=== PATIENT | female | born 1965 | race Hispanic/Latino ===

== ENCOUNTER 2023-04-02 01:02 | Inpatient (IN) | payer BC ==
[~2023-04-02] VITALS: Ht 152.4 cm; Wt 104.3 kg
[~2023-04-02 01:02] MED LIST: AMLO-257 PO; ATOR10 PO; GABA-529 PO; LOSA100T59 PO; METF-444 PO
[2023-04-02 01:45] LABS: BASOPHILS % (AUTO) 0.3 % (0.0-5.0); EOSINOPHILS % (AUTO) 0.9 % (0.0-8.0); HEMATOCRIT 39.1 % (36-48); LYMPHOCYTES % (AUTO) 12.2 % (21.0-51.0); MEAN CORPUSCULAR HEMOGLOBIN 27.6 pg (27.0-33.0); MEAN CORPUSCULAR HGB CONC 33.8 g/dL (32.0-36.0); MEAN CORPUSCULAR VOLUME 81.6 fL (79-99); MONOCYTES % (AUTO) 6.9 % (3.0-13.0); NEUTROPHILS % (AUTO) 79.3 % (40.0-77.0); PLATELET COUNT (AUTO) 203 K/uL (130-400); RED BLOOD CELL COUNT(AUTO) 4.79 MIL/uL (4.00-5.50); RED CELL DISTRIBUTION WIDTH 13.2 % (11.0-15.5); WHITE BLOOD COUNT (AUTO) 14.1 K/uL (4.8-10.8)
[2023-04-02] MEDS ORDERED: KETOROLAC 15MG/ML VIAL (15MG/ML) IV ONE (02:00)
[2023-04-02 02:01] LABS: CREATININE 0.9 mg/dL (0.5-1.5); POTASSIUM 3.9 mmol/L (3.5-5.1)
[2023-04-02 02:05] LABS: TOTAL PROTEIN, SERUM 7.2 g/dL (6.0-8.3)
[2023-04-02 02:19] LABS: APPEARANCE,URINE CLEAR (CLEAR); BILIRUBIN,URINE NEGATIVE (NEGATIVE); COLOR,URINE LIGHT-YELLOW (YELLOW); GLUCOSE, URINE (UA) >=1000 mg/dL (NEGATIVE); KETONES,URINE NEGATIVE (NEGATIVE); LEUKOCYTE ESTERASE ,URINE NEGATIVE Leu/uL (NEGATIVE); NITRATE,URINE NEGATIVE (NEGATIVE); PROTEIN,URINE 10 mg/dL (NEGATIVE); UROBILINOGEN,URINE 0.2 mg/dL (0.2-1.0)
[2023-04-02 02:21] LABS: BACTERIA,URINE FEW /HPF (None Seen); MUCUS,URINE RARE LPF (None Seen); SQUAMOUS EPITHELIAL CELL,UR FEW /HPF (0-2)
[2023-04-02] MEDS ORDERED: ZOSYN 3.375GM +NS 50ML IVPB ONE (03:00)
[2023-04-02] MEDS ORDERED: ONDANSETRON 4MG INJ IVP ONE (03:30)
[2023-04-02] MEDS ORDERED: MORPHINE 2 MG SYG IVP ONE (03:30)
[2023-04-02] MEDS ORDERED: ONDANSETRON 4MG INJ IVP PRN (06:30)
[2023-04-02] MEDS: 0.9%NACL 1000ML 1,000 ML IV SCH ×2 (06:48→19:50)
[2023-04-02] MEDS: HEPARIN 5,000 UNIT VIAL SQ SCH ×2 (06:48→18:18)
[2023-04-02] MEDS: MORPHINE 2 MG SYG IVP PRN ×3 (08:47→23:29)
[2023-04-02] MEDS: ACETAMINOPHEN 325 MG TAB PO PRN ×2 (10:32→23:22)
[2023-04-02 11:50] VITALS: BP 132/60
[2023-04-02] MEDS: ZOSYN 3.375GM +NS 50ML IVPB SCH ×2 (12:58→21:05)
[2023-04-02 15:35] VITALS: BP 146/72
[2023-04-02 19:20] VITALS: BP 121/73
[2023-04-02] MEDS ORDERED: INSULIN HUMULIN R 100 UNIT/ML 3ML SQ SCH (21:00)
[2023-04-02] MEDS: LACTATED RINGERS 1000ML 1,000 ML IV SCH (21:05)
[2023-04-02] MEDS: INSULIN HUMULIN R 100 UNIT/ML 3ML SQ SCH (21:15)
[2023-04-02 23:50] VITALS: BP 148/81
[2023-04-03 04:00] VITALS: BP 134/77
[2023-04-03 05:02] LABS: BASOPHILS % (AUTO) 0.6 % (0.0-5.0); EOSINOPHILS % (AUTO) 3.1 % (0.0-8.0); LYMPHOCYTES % (AUTO) 27.2 % (21.0-51.0); MEAN CORPUSCULAR HEMOGLOBIN 27.7 pg (27.0-33.0); MEAN CORPUSCULAR HGB CONC 33.2 g/dL (32.0-36.0); MEAN CORPUSCULAR VOLUME 83.3 fL (79-99); MONOCYTES % (AUTO) 6.5 % (3.0-13.0); NEUTROPHILS % (AUTO) 62.1 % (40.0-77.0); PLATELET COUNT (AUTO) 233 K/uL (130-400); RED BLOOD CELL COUNT(AUTO) 4.08 MIL/uL (4.00-5.50); RED CELL DISTRIBUTION WIDTH 13.2 % (11.0-15.5)
[2023-04-03 05:21] LABS: ALBUMIN 2.2 g/dL (3.5-5.0); CREATININE 0.6 mg/dL (0.5-1.5); MAGNESIUM 1.4 mg/dL (1.80-2.40); TOTAL PROTEIN, SERUM 6.2 g/dL (6.0-8.3)
[2023-04-03 05:26] LABS: HEMOGLOBIN A1C 10.8 % (4.0-6.0)
[2023-04-03] MEDS: ZOSYN 3.375GM +NS 50ML IVPB SCH ×3 (05:43→21:15)
[2023-04-03] MEDS: HEPARIN 5,000 UNIT VIAL SQ SCH ×2 (06:02→18:46)
[2023-04-03] MEDS: INSULIN HUMULIN R 100 UNIT/ML 3ML SQ SCH ×4 (06:03→18:00)
[2023-04-03 07:40] VITALS: BP 149/69
[2023-04-03] MEDS: PANTOPRAZOLE 40 MG/VIAL IVP SCH (08:47)
[2023-04-03] MEDS: POTASSIUM CHLORIDE 20MEQ/100ML 100 ML IV PRN ×2 (09:26→12:27)
[2023-04-03 12:00] VITALS: BP 130/72
[2023-04-03] MEDS: LACTATED RINGERS 1000ML 1,000 ML IV SCH (13:27)
[2023-04-03] MEDS: KCL 20 MEQ ERTAB PO PRN ×4 (13:27→20:00)
[2023-04-03] MEDS ORDERED: POTASSIUM CHLORIDE 10% ELIXIR 20 MEQ/15 ML UDCUP PO PRN (13:30)
[2023-04-03] MEDS ORDERED: POTASSIUM CHLORIDE 20MEQ/100ML 100 ML IV PRN (13:30)
[2023-04-03 16:08] VITALS: BP 136/75
[2023-04-03] MEDS: MORPHINE 2 MG SYG IVP PRN (16:15)
[2023-04-03 19:27] VITALS: BP 136/77
[2023-04-03 22:58] VITALS: BP 145/73
[2023-04-04 02:49] VITALS: BP 122/70
[2023-04-04] MEDS: ZOSYN 3.375GM +NS 50ML IVPB SCH ×3 (05:04→20:59)
[2023-04-04] MEDS: INSULIN HUMULIN R 100 UNIT/ML 3ML SQ SCH ×4 (06:00→18:19)
[2023-04-04 06:34] LABS: HEMATOCRIT 36.5 % (36-48); MEAN CORPUSCULAR HEMOGLOBIN 27.7 pg (27.0-33.0); MEAN CORPUSCULAR HGB CONC 33.2 g/dL (32.0-36.0); MEAN CORPUSCULAR VOLUME 83.5 fL (79-99); RED BLOOD CELL COUNT(AUTO) 4.37 MIL/uL (4.00-5.50); RED CELL DISTRIBUTION WIDTH 13.1 % (11.0-15.5); WHITE BLOOD COUNT (AUTO) 9.1 K/uL (4.8-10.8)
[2023-04-04] MEDS: HEPARIN 5,000 UNIT VIAL SQ SCH ×2 (06:34→18:18)
[2023-04-04 06:48] LABS: CREATININE 0.6 mg/dL (0.5-1.5); MAGNESIUM 1.6 mg/dL (1.80-2.40); POTASSIUM 3.8 mmol/L (3.5-5.1)
[2023-04-04 08:03] VITALS: BP 146/76
[2023-04-04] MEDS: PANTOPRAZOLE 40 MG/VIAL IVP SCH (08:44)
[2023-04-04] MEDS: LACTATED RINGERS 1000ML 1,000 ML IV SCH (10:04)
[2023-04-04] MEDS ORDERED: DiphenhydrAMINE HCL 50 MG/ML VIAL IV ONE (11:00)
[2023-04-04] MEDS ORDERED: SOLU-MEDROL 40MG VIAL IVP ONE (11:30)
[2023-04-04 11:32] VITALS: BP 167/90
[2023-04-04] MEDS ORDERED: IOHEXOL 350 MG/ML 100ML INFUS..BTL IV ONE (12:09)
[2023-04-04 15:43] VITALS: BP 154/79
[2023-04-04 19:15] VITALS: BP 152/81
[2023-04-04] MEDS ORDERED: MAGNESIUM 2GM PREMIX 50ML 50 ML IV SCH (19:30)
[2023-04-04] MEDS: AMLODIPINE 5 MG TAB PO SCH (20:22)
[2023-04-04] MEDS: LOSARTAN 100 MG TABLET PO SCH (20:22)
[2023-04-04] MEDS: GABAPENTIN 100 MG CAPSULE PO SCH (20:23)
[2023-04-04 22:47] VITALS: BP 155/84
[2023-04-05] VITALS (20 sets, daily range): BP systolic 96–164; BP diastolic 37–86
[2023-04-05] MEDS: LACTATED RINGERS 1000ML 1,000 ML IV SCH ×3 (00:42→16:45)
[2023-04-05] MEDS: 0.9%NACL 1000ML 1,000 ML IV SCH (01:10)
[2023-04-05] MEDS: ZOSYN 3.375GM +NS 50ML IVPB SCH ×3 (05:06→21:04)
[2023-04-05] MEDS: INSULIN HUMULIN R 100 UNIT/ML 3ML SQ SCH ×3 (06:00→11:53)
[2023-04-05] MEDS: HEPARIN 5,000 UNIT VIAL SQ SCH ×2 (06:30→18:28)
[2023-04-05] MEDS: PANTOPRAZOLE 40 MG/VIAL IVP SCH (09:37)
[2023-04-05 10:02] LABS: BASOPHILS % (AUTO) 0.4 % (0.0-5.0); EOSINOPHILS % (AUTO) 0.1 % (0.0-8.0); HEMATOCRIT 35.5 % (36-48); LYMPHOCYTES % (AUTO) 23.7 % (21.0-51.0); MEAN CORPUSCULAR HEMOGLOBIN 27.6 pg (27.0-33.0); MEAN CORPUSCULAR HGB CONC 34.1 g/dL (32.0-36.0); MEAN CORPUSCULAR VOLUME 81.1 fL (79-99); MONOCYTES % (AUTO) 5.4 % (3.0-13.0); NEUTROPHILS % (AUTO) 68.9 % (40.0-77.0); PLATELET COUNT (AUTO) 311 K/uL (130-400); RED BLOOD CELL COUNT(AUTO) 4.38 MIL/uL (4.00-5.50); WHITE BLOOD COUNT (AUTO) 14.1 K/uL (4.8-10.8)
[2023-04-05 10:18] LABS: ALBUMIN 2.9 g/dL (3.5-5.0); CREATININE 0.7 mg/dL (0.5-1.5); MAGNESIUM 2.2 mg/dL (1.80-2.40); POTASSIUM 3.5 mmol/L (3.5-5.1); TOTAL PROTEIN, SERUM 7.3 g/dL (6.0-8.3)
[2023-04-05] MEDS: KCL 20 MEQ ERTAB PO PRN ×2 (10:34→12:22)
[2023-04-05] MEDS ORDERED: PROPOFOL 10 MG/ML 20ML VIAL IV ONE ×2 (13:44→13:45)
[2023-04-05] MEDS ORDERED: LIDOCAINE PF 100MG/5ML (2%) SYRINGE 5ML ONE (13:45)
[2023-04-05] MEDS: MORPHINE 2 MG SYG IVP PRN (15:50)
[2023-04-05 16:22] LABS: INR 0.99 (0.85-1.15); PROTHROMBIN TIME 10.8 SEC (9.6-11.6)
[2023-04-05 16:23] LABS: PARTIAL THROMBOPLASTIN TIME 26.9 SEC (26.3-35.5)
[2023-04-05] MEDS: AMLODIPINE 5 MG TAB PO SCH (21:04)
[2023-04-05] MEDS: GABAPENTIN 100 MG CAPSULE PO SCH (21:04)
[2023-04-05] MEDS: LOSARTAN 100 MG TABLET PO SCH (21:04)
[2023-04-06] VITALS (29 sets, daily range): BP systolic 124–175; BP diastolic 69–88
[2023-04-06] MEDS: LACTATED RINGERS 1000ML 1,000 ML IV SCH (04:53)
[2023-04-06] MEDS: ZOSYN 3.375GM +NS 50ML IVPB SCH ×3 (04:53→20:33)
[2023-04-06] MEDS: INSULIN HUMULIN R 100 UNIT/ML 3ML SQ SCH ×4 (06:00→18:42)
[2023-04-06] MEDS: HEPARIN 5,000 UNIT VIAL SQ SCH (06:30)
[2023-04-06] MEDS: PANTOPRAZOLE 40 MG/VIAL IVP SCH (08:33)
[2023-04-06] MEDS ORDERED: IOHEXOL-350 50ML VIAL IV ONE (10:13)
[2023-04-06] MEDS ORDERED: SUCCINYLCHOLINE CHLORIDE 20 MG/ML 10 ML VIAL ONE (10:41)
[2023-04-06] MEDS ORDERED: LIDOCAINE PF 100MG/5ML (2%) SYRINGE 5ML ONE (10:41)
[2023-04-06] MEDS ORDERED: DEXAMETHASONE SOD PHOSPHATE 10MG/ML 1ML VIAL ONE (10:42)
[2023-04-06] MEDS ORDERED: GLYCOPYRROLATE 1 MG/5 ML SYRINGE ONE (10:42)
[2023-04-06] MEDS ORDERED: NEOSTIGMINE 5MG/5ML SYR IV ONE (10:43)
[2023-04-06] MEDS ORDERED: FENTANYL CITRATE PF 50 MCG/1 ML 2ML VIAL ONE ×3 (10:43→12:34)
[2023-04-06] MEDS ORDERED: ONDANSETRON 4MG INJ ONE (10:43)
[2023-04-06] MEDS ORDERED: PROPOFOL 10 MG/ML 20ML VIAL IV ONE (10:43)
[2023-04-06] MEDS ORDERED: ROCURONIUM 10MG/1ML SYR 10 MG/ML ML ONE (10:43)
[2023-04-06] MEDS ORDERED: MIDAZOLAM HCL 1 MG/ML 2ML VIAL ONE (10:43)
[2023-04-06] MEDS ORDERED: BUPIVACAINE/PF 0.25% 30ML VIAL IJ ONE (10:53)
[2023-04-06] MEDS ORDERED: MEPERIDINE-PF 25 MG/ML SYG ONE ×2 (12:44→12:56)
[2023-04-06] MEDS: MORPHINE 2 MG SYG IVP PRN ×2 (14:56→20:53)
[2023-04-06] MEDS ORDERED: PIPE3.379 IV (20:06)
[2023-04-06] MEDS: GABAPENTIN 100 MG CAPSULE PO SCH (20:33)
[2023-04-06] MEDS: LOSARTAN 100 MG TABLET PO SCH (20:34)
[2023-04-06] MEDS: AMLODIPINE 5 MG TAB PO SCH (20:34)
[2023-04-06] MEDS ORDERED: 0.9%NACL 10ML VIAL IV SCH (21:00)
== END 2023-04-06 22:16 | disposition home or self-care (01) | DRG 336 ==
LOC: EDH 01:02 → EDHIP 06:03 → WSH 11:45
PROVIDERS: ADMIT Internal Medicine Infectious Disease; ATTEND Internal Medicine Infectious Disease
PROC: 0DB98ZX Excision of Duodenum, Via Natural or Artificial Opening Endoscopic, Diagnostic (ICD-10-PCS; 2023-04-05)
PROC: 0DB68ZX Excision of Stomach, Via Natural or Artificial Opening Endoscopic, Diagnostic (ICD-10-PCS; 2023-04-05)
PROC: 0DB58ZX Excision of Esophagus, Via Natural or Artificial Opening Endoscopic, Diagnostic (ICD-10-PCS; 2023-04-05)
PROC: 0DB68ZZ Excision of Stomach, Via Natural or Artificial Opening Endoscopic (ICD-10-PCS; 2023-04-05)
PROC: 0DNW4ZZ Release Peritoneum, Percutaneous Endoscopic Approach (ICD-10-PCS; 2023-04-06)
PROC: BF131ZZ Fluoroscopy of Gallbladder and Bile Ducts using Low Osmolar Contrast (ICD-10-PCS; 2023-04-06)
PROC: 0FT44ZZ Resection of Gallbladder, Percutaneous Endoscopic Approach (ICD-10-PCS; principal; 2023-04-06 10:59)
DX: K29.70 Gastritis, unspecified, without bleeding (principal); K65.4 Sclerosing mesenteritis; K81.0 Acute cholecystitis; Z68.41 Body mass index [BMI] 40.0-44.9, adult; E11.40 Type 2 diabetes mellitus with diabetic neuropathy, unspecified; E66.01 Morbid (severe) obesity due to excess calories; E78.00 Pure hypercholesterolemia, unspecified; G24.9 Dystonia, unspecified; K52.9 Noninfective gastroenteritis and colitis, unspecified; K76.0 Fatty (change of) liver, not elsewhere classified; I10 Essential (primary) hypertension; K44.9 Diaphragmatic hernia without obstruction or gangrene; K66.0 Peritoneal adhesions (postprocedural) (postinfection); Z20.822 Contact with and (suspected) exposure to COVID-19; K21.00 Gastro-esophageal reflux disease with esophagitis, without bleeding; K29.00 Acute gastritis without bleeding; K82.8 Other specified diseases of gallbladder; Z80.0 Family history of malignant neoplasm of digestive organs; Z80.1 Family history of malignant neoplasm of trachea, bronchus and lung; Z80.3 Family history of malignant neoplasm of breast; Z80.41 Family history of malignant neoplasm of ovary; Z82.49 Family history of ischemic heart disease and other diseases of the circulatory system; Z83.3 Family history of diabetes mellitus
CPT/HCPCS: 36415; 43239; 71045; 71260; 74176; 74177; 76705; 78227; 80048; 80053; 81001; 82150; 82948; 83036; 83690; 83735; 84132; 84702; 85025; 85027; 85049; 85610; 85730; 86677; 87088; 87635; A4606; A9537; C9113; G0378; J0330; J1100; J1200; J1644; J1815; J1885; J2001; J2175; J2250; J2405; J2543; J2704; J2710; J2920; J3010; J3475; J3480; J3490; J7030; J7120; Q9967